=== PATIENT | male | born 1980 | race Caucasian/White ===

== ENCOUNTER 2017-08-23 15:50 | Emergency (ER) | payer BC, OTHER ==
[2017-08-23 16:22] VITALS: BP 146/89
--- NOTE | 2017-08-23 17:07 | ED ---
Lyly Fournier Jason, scribed for Coy Murphy MD on 08/23/17 at 1645 . 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 He states At work, I wear a tight belt and bend over while sitting and Im wondering if this repeated pressure every day caused the pain Im experiencing. I dont feel this at night when Im sleeping. The patient rates the pain 3/10 in severity. Symptoms aggravated by twisting right. Symptoms alleviated by nothing. Patient reports diarrhea (yesterday). Patient denies urinary sx, nausea, and testicle pain. - History of Current Complaint Chief Complaint: UCAbdominalPain Stated Complaint: LOWER GROIN/BACK PAIN Time Seen by Provider: 08/23/17 16:34 Hx Obtained From: Patient Onset/Duration: Gradual Onset, Lasting Days - since 9 days ago, Still Present Timing: Intermittent Pain Intensity: 2 Pain Scale Used: 0-10 Numeric Location: Flank - right, Other - pelvic area Aggravating Factor(s): Nothing Alleviating Factor(s): Nothing Associated Signs And Symptoms: Positive: Other - Patient reports diarrhea ( yesterday). Patient denies urinary sx, nausea, and testicle pain. - Allergies/Home Medications Allergies/Adverse Reactions: Allergies Allergy/AdvReac Type Severity Reaction Status Date / Time No Known Allergies Allergy Verified 08/23/17 16:18 Home Medications: Home Medications Metoprolol Tartrate TAB* [Lopressor TAB*] 1 tab PO DAILY 08/23/17 [History Confirmed 08/23/17] PMH/Surg Hx/FS Hx/Imm Hx Previously Healthy: No Cardiovascular History: Reports: Hx Hypertension History: Denies: Hx Kidney Stones Infectious Disease History: No Infectious Disease History: Denies: Traveled Outside the [place] in Last 30 Days - Family History Known Family History: Negative: Blood Disorder - Social History Alcohol Use: None Substance Use Type: Reports: None Smoking Status (MU): Never Smoked Tobacco Review of Systems Positive: Diarrhea. Negative: Nausea Positive: no symptoms reported, other - negative testicle pain All Other Systems Reviewed And Are Negative: Yes Physical Exam - Summary Physical Exam Summary: General: well-appearing, no pain distress Skin: warm, color reflects adequate perfusion, dry Head: normal Eyes: EOMI, GILMER ENT: normal Neck: supple, nontender Respiratory: CTA, breath sounds present Cardiovascular: RRR Abdomen: soft, Tenderness in the inguinal canal Bowel: present Musculoskeletal: normal, strength/ROM intact Neurological: normal, sensory/motor intact, A&O x3 Psychological: affect/mood appropriate Triage Information Reviewed: Yes Vital Signs On Initial Exam: Initial Vitals Temp Pulse Resp BP Pulse Ox 98.3 F 87 16 146/89 100 08/23/17 16:20 08/23/17 16:20 08/23/17 16:20 08/23/17 16:20 08/23/17 16:20 Vital Signs Reviewed: Yes Diagnostics - Vital Signs Vital Signs Temp Pulse Resp BP Pulse Ox 08/23/17 16:20 98.3 F 87 16 146/89 100 - Laboratory Lab Results: Lab Results 08/23/17 Range/Units 16:38 POC Urine Color Yellow POC Urine Clarity Clear POC Urine pH 6.5 (5-9) POC Ur Specif Tyro 1.010 (1.010-1.030) POC Urine Protein Negative (Negative) POC Ur Glucose (UA) Negative (Negative) POC Urine Ketones Negative (Negative) POC Urine Blood Negative (Negative) POC Urine Nitrite Negative (Negative) POC Urine Bilirubin Negative (Negative) POC Urine Urobilinogen 0.2 (Negative) POC U Leukocyte Esteras Negative (Negative) Lab Statement: Any lab studies that have been ordered have been reviewed, and results considered in the medical decision making process. Abdominal Pain Fem Course/Dx - Course Course Of Treatment: BP noted and advised to follow up with PCP. Medications reviewed. Allergies noted. Urinalysis is normal. MINIMALLY TENDER IN THE RIGHT INGUINAL AREA. NO MASS PALPATED. MCBURNEY'S POINT NON TENDER. NO FEVERS, NO LOSS OF APPETITE, NO TESTICULAR PAIN. F/U WITH PMD; CONSIDER GROIN/RT ABD/RT FLANK U/S WITH PMD. GO TO ED IF WORSE. - Diagnoses Provider Diagnoses: HTN (hypertension), Right groin pain, Right sided abdominal pain, Right flank pain Discharge - Discharge Plan Condition: Stable Disposition: HOME Patient Education Materials: Abdominal Pain (ED), Flank Pain (ED), Groin Pain ( ED) Referrals: Rodney Duffy MD [Primary Care Provider] - Additional Instructions: FOLLOW UP WITH YOUR DOCTOR. GO TO TO THE EMERGENCY DEPARTMENT FOR ANY WORSENING OF YOUR CONDITION; PAIN, FEVER, YOU FEEL ILL OR QUESTIONS OR CONCERNS. YOUR BLOOD PRESSURE WAS ELEVATED DURING TODAY'S VISIT; FOLLOW UP WITH YOUR PCP WITHIN ONE WEEK FOR FURTHER EVALUATION. The documentation as recorded by the Lyly carlson Jason accurately reflects the service I personally performed and the decisions made by me, Coy Murphy MD.
== END 2017-08-23 17:05 | disposition home or self-care (01) ==
LOC: UCEAST 15:50
DX: R10.31 Right lower quadrant pain (principal); M54.5 Low back pain; R19.7 Diarrhea, unspecified; I10 Essential (primary) hypertension
CPT/HCPCS: 81003; 99211; G0463

== ENCOUNTER 2019-06-01 08:30 | Emergency (ER) | payer BC ==
[2019-06-01 08:41] VITALS: BP 153/92
--- NOTE | 2019-06-01 10:02 | UC ---
Respiratory Complaint HPI - HPI Summary HPI Summary: 38 yo male presents with cough. He tells me that for the last 4 days he has had an irritating dry cough that keeps him up at night. Last night he was sweaty in the middle of the night and took his temp and it was 100.5F. He has been taking delsym with little relief. He denies sore throat, SOB, chest pain, rash, or sinus symptoms. - History of Current Complaint Chief Complaint: UCRespiratory Stated Complaint: BAD COUGH, SWEATS, FEVER Time Seen by Provider: 06/01/19 09:58 Hx Obtained From: Patient Onset/Duration: Sudden Onset Severity Initially: Mild Severity Currently: Mild Pain Intensity: 1 Pain Scale Used: 0-10 Numeric Character: Cough: Nonproductive - Allergies/Home Medications Allergies/Adverse Reactions: Allergies Allergy/AdvReac Type Severity Reaction Status Date / Time No Known Allergies Allergy Verified 06/01/19 08:41 PMH/Surg Hx/FS Hx/Imm Hx Cardiovascular History: Hypertension - Surgical History Surgical History: None - Family History Known Family History: Positive: Hypertension Negative: Blood Disorder - Social History Occupation: Employed Full-time Lives: With Family Alcohol Use: None Substance Use Type: None Smoking Status (MU): Never Smoked Tobacco Review of Systems All Other Systems Reviewed And Are Negative: No Constitutional: Positive: Negative Skin: Positive: Negative Eyes: Positive: Negative ENT: Positive: Negative Respiratory: Positive: Cough Cardiovascular: Positive: Negative Gastrointestinal: Positive: Negative Neurological: Positive: Negative Psychological: Positive: Negative Physical Exam - Summary Physical Exam Summary: GENERAL: NAD. WDWN. No pain distress. SKIN: No rashes, sores, lesions, or open wounds. HEENT: Head: AT/NC Eyes: EOM intact. Conjunctiva clear without inflammation or discharge. Ears: Hearing grossly normal. TMs intact, no bulging, erythema, or edema. Nose: Nasal mucosa pink and moist. NTTP maxillary and frontal sinus. Throat: Posterior oropharynx without exudates, erythema, or tonsillar enlargement. Uvula midline. NECK: Supple. Nontender. No lymphadenopathy. CHEST: CTAB. No accessory muscle use. Breathing comfortably and in no distress. CV: RRR. Pulses intact. Cap refill <2seconds NEURO: Alert. PSYCH: Age appropriate behavior. Triage Information Reviewed: Yes Vital Signs: Initial Vital Signs Temp 98.5 F 06/01/19 08:38 Pulse 108 06/01/19 08:38 Resp 20 06/01/19 08:38 BP 153/92 06/01/19 08:38 Pulse Ox 100 06/01/19 08:38 Vital Signs Reviewed: Yes Respiratory Course/Dx - Course Course Of Treatment: Afebrile and exam WNL. Suspect viral cough. Advised to try OTC claritin and will rx for cough suppressants. Advised to be rechecked if symptoms worsen or if no improvement in the next 4-5 days - Differential Dx/Diagnosis Provider Diagnosis: URI (upper respiratory infection) Discharge ED - Sign-Out/Discharge Documenting (check all that apply): Patient Departure All imaging exams completed and their final reports reviewed: No Studies - Discharge Plan Condition: Stable Disposition: HOME Prescriptions: Benzonatate CAP* [Tessalon 100 MG CAP*] 100 mg PO TID PRN #21 cap PRN Reason: Cough Codeine Phosphate/Guaifenesin [Guaifen-Codeine 100-10 mg/5 ml] 5 ml PO BEDTIME PRN #35 ml MDD 5ml PRN Reason: Cough Patient Education Materials: Upper Respiratory Infection (ED), Acute Cough (ED) Referrals: Rodney Duffy MD [Primary Care Provider] - Additional Instructions: Your symptoms are likely from a viral infection. Viral infections do not respond to antibiotics and are limited to the treatment of symptoms. Viral infections typically run their course in 7-10 days. Drink plenty of fluids, especially if you are running any fever. Use salt water gargles several times a day. Take over the counter acetaminophen (Tylenol) or ibuprofen (Advil, Motrin) according to directions as needed for pain or fever. You may also use Chloraseptic spray or Cepacol lonzenges according to directions which contain a numbing medication and can provide some temporary relief from a sore throat. Return here or follow up with your primary care provider in 7 days if symptoms persist. - Billing Disposition and Condition Condition: STABLE Disposition: Home
== END 2019-06-01 10:07 | disposition home or self-care (01) ==
LOC: UCEAST 08:30
DX: J06.9 Acute upper respiratory infection, unspecified (principal); I10 Essential (primary) hypertension
CPT/HCPCS: 99212; G0463